=== PATIENT | female | born 1940 | race Two or more races ===

== ENCOUNTER 2019-06-30 11:20 | Outpatient (CLI) | payer OTHER ==
[~2019-06-30] VITALS: Ht 170.2 cm; Wt 64.9 kg
== END 2019-06-30 13:08 | disposition home or self-care (01) ==
LOC: OFIC 805 11:20
DX: H91.8X3 Other specified hearing loss, bilateral (principal); D23.4 Other benign neoplasm of skin of scalp and neck; R42 Dizziness and giddiness; B02.8 Zoster with other complications